=== PATIENT | female | born 1965 | race Caucasian/White ===

== ENCOUNTER → 2017-02-12 | Outpatient (CLI) | payer BC ==
--- NOTE | 2017-02-13 09:13 | MM ---
Reason for exam: screening (asymptomatic). Last mammogram was performed 1 year ago. History: Patient history of other cancer. Reductions of both breasts, 2006. Took hormonal contraceptives for 25 years beginning at age 20. Physical Findings: A clinical breast exam by your physician is recommended on an annual basis and results should be correlated with mammographic findings. MG 3D Screening Mammo W/Cad Bilateral CC and MLO view(s) were taken. Prior study comparison: January 31, 2016, bilateral MG screening mammo w CAD. January 25, 2015, bilateral MG screening mammo w CAD. The breast tissue is heterogeneously dense. This may lower the sensitivity of mammography. Finding: There are typically benign dystrophic, round, grouped/clustered and diffuse calcifications in both breasts. Asymmetric breast tissue in the right upper outer quadrant is stable. There is no discrete abnormality. ASSESSMENT: Benign, BI-RAD 2 RECOMMENDATION: Routine screening mammogram of both breasts in 1 year.
== END | disposition home or self-care (01) ==
LOC: RADMAMWWP 09:26
PROVIDERS: ATTEND Obstetrics & Gynecology
DX: Z12.31 Encounter for screening mammogram for malignant neoplasm of breast (principal)
CPT/HCPCS: 77063; G0202

== ENCOUNTER → 2017-05-04 | Outpatient (CLI) | payer BC ==
[2017-05-04 08:59] LABS: HGB 14.1 gm/dL (11.4-16.0); MCHC 32.7 g/dL (31.0-37.0); MCV 91.5 fL (80.0-100.0); Platelet Count 213 k/uL (150-450); RDW 12.2 % (11.5-15.5); WBC 5.7 k/uL (3.8-10.6)
[2017-05-04 09:57] LABS: ALT 44 U/L (9-52); AST 23 U/L (14-36); Albumin 3.7 g/dL (3.5-5.0); Alkaline Phosphatase 66 U/L (38-126); Anion Gap 8 mmol/L; Blood Urea Nitrogen 16 mg/dL (7-17); Calcium 9.4 mg/dL (8.4-10.2); Carbon Dioxide 24 mmol/L (22-30); Chloride 109 mmol/L (98-107); Cholesterol 135 mg/dL (<200); Glucose 90 mg/dL (74-99); HDL Cholesterol 67 mg/dL (40-60); LDL Cholesterol,Calculated 56 mg/dL (0-99); Potassium 4.4 mmol/L (3.5-5.1); Sodium 141 mmol/L (137-145); Total Bilirubin 0.7 mg/dL (0.2-1.3); Total Protein 6.5 g/dL (6.3-8.2); Triglycerides 62 mg/dL (<150)
== END | disposition home or self-care (01) ==
LOC: LABWHC1 08:28
PROVIDERS: ATTEND Family Medicine
DX: E06.9 Thyroiditis, unspecified (principal); R73.01 Impaired fasting glucose; E78.00 Pure hypercholesterolemia, unspecified; E55.9 Vitamin D deficiency, unspecified
CPT/HCPCS: 36415; 80053; 80061; 82306; 83735; 84443; 84481; 85027

== ENCOUNTER → 2017-10-22 | Outpatient (CLI) | payer BC ==
[2017-10-22 08:25] LABS: HCT 42.1 % (34.0-46.0); HGB 14.2 gm/dL (11.4-16.0); MCH 30.4 pg (25.0-35.0); MCHC 33.7 g/dL (31.0-37.0); MCV 90.4 fL (80.0-100.0); Mean Platelet Volume 7.1; Platelet Count 202 k/uL (150-450); RBC 4.65 m/uL (3.80-5.40); RDW 12.6 % (11.5-15.5); WBC 5.1 k/uL (3.8-10.6)
[2017-10-22 08:46] LABS: ALT 34 U/L (9-52); AST 23 U/L (14-36); Albumin 3.8 g/dL (3.5-5.0); Alkaline Phosphatase 64 U/L (38-126); Anion Gap 7 mmol/L; Blood Urea Nitrogen 12 mg/dL (7-17); Carbon Dioxide 23 mmol/L (22-30); Chloride 110 mmol/L (98-107); Cholesterol 121 mg/dL (<200); Glucose 91 mg/dL (74-99); HDL Cholesterol 68 mg/dL (40-60); LDL Cholesterol,Calculated 38 mg/dL (0-99); Potassium 4.1 mmol/L (3.5-5.1); Sodium 140 mmol/L (137-145); Total Bilirubin 0.5 mg/dL (0.2-1.3); Total Protein 6.3 g/dL (6.3-8.2); Triglycerides 76 mg/dL (<150)
== END | disposition home or self-care (01) ==
LOC: LABWHC1 08:03
PROVIDERS: ATTEND Family Medicine
DX: E03.9 Hypothyroidism, unspecified (principal)
CPT/HCPCS: 36415; 80053; 80061; 83735; 84443; 85027

== ENCOUNTER → 2017-11-13 | Outpatient (CLI) | payer BC ==
[2017-11-13 09:04] LABS: Prothrombin Time 10.2 sec (9.0-12.0)
[2017-11-13 11:27] LABS: C Reactive Protein <5.0 mg/L (<10.0)
[2017-11-14 06:55] LABS: EBV - EA (IgG) <5.0 U/mL (<9.0)
[2017-11-14 13:19] LABS: Vitamin C 11 mg/L (2-19)
== END | disposition home or self-care (01) ==
LOC: LABWHC1 08:25
PROVIDERS: ATTEND Family Medicine
DX: G47.00 Insomnia, unspecified (principal); M79.81 Nontraumatic hematoma of soft tissue
CPT/HCPCS: 36415; 82180; 82533; 84481; 85610; 86038; 86140; 86663

== ENCOUNTER → 2018-02-18 | Outpatient (CLI) | payer BC ==
--- NOTE | 2018-02-19 10:22 | MM ---
Reason for exam: screening (asymptomatic). Last mammogram was performed 1 year ago. History: Patient history of other cancer. Reductions of both breasts, 2006. Took hormonal contraceptives for 25 years beginning at age 20. Physical Findings: A clinical breast exam by your physician is recommended on an annual basis and results should be correlated with mammographic findings. MG 3D Screening Mammo W/Cad Bilateral CC, MLO, and XCCL view(s) were taken. Prior study comparison: February 12, 2017, bilateral MG 3d screening mammo w/cad. January 31, 2016, bilateral MG screening mammo w CAD. The breast tissue is heterogeneously dense. This may lower the sensitivity of mammography. There are benign appearing round calcifications bilaterally. Post surgical change bilaterally. No significant changes when compared with prior studies. ASSESSMENT: Benign, BI-RAD 2 RECOMMENDATION: Routine screening mammogram of both breasts in 1 year.
== END | disposition home or self-care (01) ==
LOC: RADMAMWWP 09:43
PROVIDERS: ATTEND Obstetrics & Gynecology
DX: Z12.31 Encounter for screening mammogram for malignant neoplasm of breast (principal)
CPT/HCPCS: 77063; 77067

== ENCOUNTER → 2018-04-29 | Outpatient (CLI) | payer BC ==
[2018-04-29 08:28] LABS: HCT 44.7 % (34.0-46.0); HGB 14.9 gm/dL (11.4-16.0); MCH 30.3 pg (25.0-35.0); MCHC 33.2 g/dL (31.0-37.0); MCV 91.2 fL (80.0-100.0); Mean Platelet Volume 7.2; Platelet Count 179 k/uL (150-450); RBC 4.91 m/uL (3.80-5.40); RDW 12.8 % (11.5-15.5)
[2018-04-29 11:40] LABS: LDL Cholesterol,Calculated 46.6 mg/dL (0.0-131.0); VLDL Calculation 14.4 mg/dL (5.00-40.00)
[2018-04-29 20:29] LABS: Hemoglobin A1C 5.3 % (4.0-6.0)
== END | disposition home or self-care (01) ==
LOC: LABWHC1 07:11
PROVIDERS: ATTEND Family Medicine
DX: E78.5 Hyperlipidemia, unspecified (principal); E03.9 Hypothyroidism, unspecified; R73.01 Impaired fasting glucose
CPT/HCPCS: 36415; 80061; 83036; 84443; 84481; 85027

== ENCOUNTER → 2018-08-05 | Outpatient (CLI) | payer BC | END | disposition home or self-care (01) | LOC: LABWHC1 07:48 | PROVIDERS: ATTEND Family Medicine | DX: E03.9 Hypothyroidism, unspecified (principal); E78.5 Hyperlipidemia, unspecified | CPT/HCPCS: 36415; 80061; 84443 ==

== ENCOUNTER → 2018-11-11 | Outpatient (CLI) | payer BC ==
[2018-11-11 10:35] LABS: African American GFR (CKD) 117.1 (60.0-200.0); Albumin 3.8 g/dL (3.80-4.90); Albumin/Globulin Ratio 1.9 (1.60-3.17); Anion Gap 3.5 mmol/L (4.00-12.00); BUN/Creat Ratio 17.14 Ratio (12.00-20.00); Calcium 8.8 mg/dL (8.7-10.3); Carbon Dioxide 25.5 mmol/L (21.6-31.8); LDL Cholesterol,Calculated 58.4 mg/dL (0.0-131.0); Potassium 4.3 mmol/L (3.5-5.5); Total Bilirubin 0.6 mg/dL (0.3-1.2); Total Protein 5.8 g/dL (6.2-8.2); VLDL Calculation 18.6 mg/dL (5.00-40.00)
[2018-11-11 10:44] LABS: Hemoglobin A1C 5.4 % (4.0-6.0)
== END | disposition home or self-care (01) ==
LOC: LABWHC1 07:03
PROVIDERS: ATTEND Family Medicine
DX: E78.5 Hyperlipidemia, unspecified (principal); E03.9 Hypothyroidism, unspecified; E55.9 Vitamin D deficiency, unspecified; R73.01 Impaired fasting glucose
CPT/HCPCS: 36415; 80053; 80061; 82306; 83036; 83735; 84443; 84481

== ENCOUNTER → 2019-02-24 | Outpatient (CLI) | payer BC ==
--- NOTE | 2019-02-25 08:05 | MM ---
Reason for exam: screening (asymptomatic). Last mammogram was performed 1 year ago. History: Patient history of other cancer. Reductions of both breasts, 2006. Took hormonal contraceptives for 25 years beginning at age 20. Physical Findings: A clinical breast exam by your physician is recommended on an annual basis and results should be correlated with mammographic findings. MG 3D Screening Mammo W/Cad Bilateral CC and MLO view(s) were taken. Prior study comparison: February 18, 2018, bilateral MG 3d screening mammo w/cad. February 12, 2017, bilateral MG 3d screening mammo w/cad. The breast tissue is heterogeneously dense. This may lower the sensitivity of mammography. Post mammoplasty changes. No significant changes when compared with prior studies. ASSESSMENT: Negative, BI-RAD 1 RECOMMENDATION: Routine screening mammogram of both breasts in 1 year.
== END ==
LOC: RADMAMWWP 07:43
PROVIDERS: ATTEND Obstetrics & Gynecology
DX: Z12.31 Encounter for screening mammogram for malignant neoplasm of breast (principal)
CPT/HCPCS: 77063; 77067

== ENCOUNTER → 2019-05-12 | Outpatient (CLI) | payer BC | END | disposition home or self-care (01) | LOC: LABWHC1 09:27 | PROVIDERS: ATTEND Family Medicine | DX: E03.9 Hypothyroidism, unspecified (principal); E46 Unspecified protein-calorie malnutrition | CPT/HCPCS: 36415; 84155; 84443; 84481 ==

== ENCOUNTER → 2019-11-17 | Outpatient (CLI) | payer BC ==
[2019-11-17 08:29] LABS: HGB 14.4 gm/dL (11.4-16.0); MCH 30.4 pg (25.0-35.0); MCHC 32.8 g/dL (31.0-37.0); MCV 92.6 fL (80.0-100.0); Mean Platelet Volume 7.7; Platelet Count 198 k/uL (150-450); RBC 4.75 m/uL (3.80-5.40); RDW 12.5 % (11.5-15.5); WBC 5.8 k/uL (3.8-10.6)
[2019-11-17 15:39] LABS: African American GFR (CKD) 116.3 (60.0-200.0); Albumin 3.9 g/dL (3.80-4.90); Albumin/Globulin Ratio 1.86 (1.60-3.17); Anion Gap 6.5 mmol/L (4.00-12.00); BUN/Creat Ratio 15.71 Ratio (12.00-20.00); Calcium 8.7 mg/dL (8.7-10.3); Carbon Dioxide 24.5 mmol/L (21.6-31.8); Chol/HDL Ratio 2.34; Globulin 2.1 g/dL (1.6-3.3); LDL Cholesterol,Calculated 50.8 mg/dL (0.0-131.0); Magnesium 1.9 mg/dL (1.5-2.4); Non-African American GFR(CKD) 100.3 (60.0-200.0); Potassium 3.8 mmol/L (3.5-5.5); Total Bilirubin 0.6 mg/dL (0.3-1.2); VLDL Calculation 24.2 mg/dL (5.00-40.00)
== END | disposition home or self-care (01) ==
LOC: LABWHC1 07:51
PROVIDERS: ATTEND Family Medicine
DX: E03.9 Hypothyroidism, unspecified (principal); E66.9 Obesity, unspecified; E88.09 Other disorders of plasma-protein metabolism, not elsewhere classified; E55.9 Vitamin D deficiency, unspecified
CPT/HCPCS: 36415; 80053; 80061; 82306; 83735; 84443; 84481; 85027

== ENCOUNTER → 2020-04-27 | Outpatient (CLI) | payer BC ==
--- NOTE | 2020-04-28 11:17 | MM ---
Reason for exam: screening (asymptomatic). Last mammogram was performed 1 year and 2 months ago. History: Patient history of other cancer. Reductions of both breasts, 2006. Took hormonal contraceptives for 25 years beginning at age 20. Physical Findings: A clinical breast exam by your physician is recommended on an annual basis and results should be correlated with mammographic findings. MG 3D Screening Mammo W/Cad Bilateral CC and MLO view(s) were taken. Prior study comparison: February 24, 2019, bilateral MG 3d screening mammo w/cad. February 18, 2018, bilateral MG 3d screening mammo w/cad. There are scattered fibroglandular densities. No significant changes when compared with prior studies. ASSESSMENT: Benign, BI-RAD 2 RECOMMENDATION: Routine screening mammogram of both breasts in 1 year.
== END | disposition home or self-care (01) ==
LOC: RADMAMWWP 08:09
PROVIDERS: ATTEND Obstetrics & Gynecology
DX: Z12.31 Encounter for screening mammogram for malignant neoplasm of breast (principal)
CPT/HCPCS: 77063; 77067

== ENCOUNTER → 2020-05-14 | Outpatient (CLI) | payer BC ==
[2020-05-14 09:43] LABS: HCT 45.5 % (34.0-46.0); HGB 15.4 gm/dL (11.4-16.0); MCH 31.4 pg (25.0-35.0); MCHC 33.8 g/dL (31.0-37.0); Mean Platelet Volume 7.1; Platelet Count 209 k/uL (150-450); RDW 12.3 % (11.5-15.5); WBC 6.8 k/uL (3.8-10.6)
[2020-05-14 18:49] LABS: African American GFR (CKD) 98.2 (60.0-200.0); Albumin 4.2 g/dL (3.80-4.90); Albumin/Globulin Ratio 2.1 (1.60-3.17); Anion Gap 6.6 mmol/L (4.00-12.00); BUN/Creat Ratio 18.75 Ratio (12.00-20.00); Carbon Dioxide 24.4 mmol/L (21.6-31.8); Chol/HDL Ratio 2.24; LDL Cholesterol,Calculated 64.2 mg/dL (0.0-131.0); Non-African American GFR(CKD) 84.8 (60.0-200.0); Potassium 4.3 mmol/L (3.5-5.5); Total Bilirubin 0.7 mg/dL (0.3-1.2); Total Protein 6.2 g/dL (6.2-8.2); VLDL Calculation 19.8 mg/dL (5.00-40.00)
== END | disposition home or self-care (01) ==
LOC: LABWHC1 08:24
PROVIDERS: ATTEND Family Medicine
DX: E55.9 Vitamin D deficiency, unspecified (principal); E66.3 Overweight; E03.9 Hypothyroidism, unspecified; E78.5 Hyperlipidemia, unspecified
CPT/HCPCS: 36415; 80053; 80061; 82550; 82607; 83735; 84443; 84481; 85027

== ENCOUNTER → 2020-11-18 | Outpatient (CLI) | payer BC ==
[2020-11-18 12:37] LABS: HCT 44.4 % (37.2-46.3); HGB 14.5 g/dL (12.0-15.0); MCH 30.4 pg (27.0-32.0); MCHC 32.7 g/dL (32.0-37.0); MCV 93.1 fL (80.0-97.0); Mean Platelet Volume 10.5 fL (9.5-12.2); Platelet Count 213 X 10*3/uL (140-440); RBC 4.77 X 10*6/uL (4.10-5.20); RDW 12.1 % (11.5-14.5); WBC 5.95 X 10*3/uL (4.50-10.00)
[2020-11-18 17:27] LABS: African American GFR (CKD) 115.5 (60.0-200.0); Albumin 4.1 g/dL (3.80-4.90); Albumin/Globulin Ratio 1.78 (1.60-3.17); Anion Gap 10.1 mmol/L (4.00-12.00); BUN/Creat Ratio 18.57 Ratio (12.00-20.00); Calcium 9.1 mg/dL (8.7-10.3); Carbon Dioxide 20.9 mmol/L (21.6-31.8); Chol/HDL Ratio 2.55; Globulin 2.3 g/dL (1.6-3.3); LDL Cholesterol,Calculated 61.6 mg/dL (0.0-131.0); Non-African American GFR(CKD) 99.6 (60.0-200.0); Potassium 4.2 mmol/L (3.5-5.5); Total Bilirubin 0.7 mg/dL (0.2-1.2); Total Protein 6.4 g/dL (6.2-8.2); VLDL Calculation 23.4 mg/dL (5.00-40.00)
== END | disposition home or self-care (01) ==
LOC: LABWHC1 07:10
PROVIDERS: ATTEND Family Medicine
DX: E78.5 Hyperlipidemia, unspecified (principal); E03.9 Hypothyroidism, unspecified; E66.3 Overweight; G47.00 Insomnia, unspecified
CPT/HCPCS: 36415; 80053; 80061; 82550; 84443; 85027

== ENCOUNTER → 2021-06-06 | Outpatient (CLI) | payer BC ==
--- NOTE | 2021-06-07 10:31 | MM ---
Reason for exam: screening (asymptomatic). Last mammogram was performed 1 year and 1 month ago. History: Patient is postmenopausal and history of other cancer. Benign excisional biopsy of the right breast, 2011. Reductions of both breasts, 2005. Took hormonal contraceptives for 25 years beginning at age 20. Physical Findings: A clinical breast exam by your physician is recommended on an annual basis and results should be correlated with mammographic findings. MG 3D Screening Mammo W/Cad Bilateral CC and MLO view(s) were taken. Prior study comparison: April 27, 2020, bilateral MG 3d screening mammo w/cad. February 24, 2019, bilateral MG 3d screening mammo w/cad. There are scattered fibroglandular densities. There is no discrete abnormality. No significant changes when compared with prior studies. ASSESSMENT: Negative, BI-RAD 1 RECOMMENDATION: Routine screening mammogram of both breasts in 1 year.
== END | disposition home or self-care (01) ==
LOC: RADMAMWWP 13:28
PROVIDERS: ATTEND Obstetrics & Gynecology
DX: Z12.31 Encounter for screening mammogram for malignant neoplasm of breast (principal); Z78.0 Asymptomatic menopausal state
CPT/HCPCS: 77063; 77067

== ENCOUNTER → 2023-06-20 | Outpatient (CLI) | payer BC ==
--- NOTE | 2023-06-21 22:11 | MM ---
Reason for Exam: Screening (asymptomatic). Last screening mammogram was performed 12 month(s) ago. Patient History: Menarche at age 16. First Full-Term at age 23. Hysterectomy at age 47. Postmenopausal. Other cancer. Hormonal Contraceptives, starting at age 20 for 25 years. 2011, Benign Excisional Biopsy on the right side. 2005, Bilateral Reduction. Risk Values: Millicent 5 year model risk: 1.1%. NCI Lifetime model risk: 7.9%. Prior Study Comparison: 04/27/2020 Bilateral Screening Mammogram, [facility]. 06/06/2021 Bilateral Screening Mammogram, [facility]. 06/19/2022 Bilateral MG 3D screening mammo w/cad, [facility]. Tissue Density: There are scattered fibroglandular densities. Findings: Analyzed By CAD. Fat necrosis calcifications on the left. Additional unchanged areas of asymmetric density on the left. There is no suspicious group of microcalcifications or new suspicious mass in either breast. Overall Assessment: Benign, BI-RAD 2 Management: Screening Mammogram of both breasts in 1 year. . Patient should continue monthly self-breast exams. A clinical breast exam by your physician is recommended on an annual basis. This exam should not preclude additional follow-up of suspicious palpable abnormalities. Note on Millicent scores and lifetime risk: 1. A Millicent score greater than 3% is considered moderate risk. If this is the case, consider specialist referral to assess eligibility for a risk reducing agent. 2. If overall lifetime risk for the development of breast cancer is 20% or higher, the patient may qualify for future screening with alternating mammogram and breast MRI. Electronically signed and approved by: Chet Duran M.D. Radiologist
== END | disposition home or self-care (01) ==
LOC: RADMAMWWP 08:02
PROVIDERS: ATTEND Obstetrics & Gynecology
DX: Z12.31 Encounter for screening mammogram for malignant neoplasm of breast (principal); Z78.0 Asymptomatic menopausal state
CPT/HCPCS: 77063; 77067

== ENCOUNTER → 2024-08-12 | Outpatient (CLI) | payer BC ==
--- NOTE | 2024-08-12 09:18 | MM ---
Reason for Exam: Screening (asymptomatic). Last mammogram was performed 1 year(s) and 2 month(s) ago. Patient History: Menarche at age 16. First Full-Term at age 23. Hysterectomy at age 47. Postmenopausal. Other cancer. Hormonal Contraceptives, starting at age 20 for 25 years. 2011, Benign Excisional Biopsy on the right side. 2005, Bilateral Reduction. Risk Values: Millicent 5 year model risk: 1.2%. NCI Lifetime model risk: 7.8%. Prior Study Comparison: 02/18/2018 Bilateral Screening Mammogram, [facility]. 02/24/2019 Bilateral Screening Mammogram, [facility]. 04/27/2020 Bilateral Screening Mammogram, [facility]. 06/06/2021 Bilateral Screening Mammogram, [facility]. 06/19/2022 Bilateral MG 3D screening mammo w/cad, [facility]. 06/20/2023 Bilateral MG 3D screening mammo w/cad, [facility]. Tissue Density: There are scattered areas of fibroglandular density. Findings: Analyzed By CAD. A few benign oil cyst calcifications redemonstrated on both sides. There is no suspicious group of microcalcifications or new suspicious mass in either breast. Overall Assessment: Benign, BI-RAD 2 Management: Screening Mammogram of both breasts in 1 year. Patient should continue monthly self-breast exams. A clinical breast exam by your physician is recommended on an annual basis. This exam should not preclude additional follow-up of suspicious palpable abnormalities. Note on Millicent scores and lifetime risk: 1. A Millicent score greater than 3% is considered moderate risk. If this is the case, consider specialist referral to assess eligibility for a risk reducing agent. 2. If overall lifetime risk for the development of breast cancer is 20% or higher, the patient may qualify for future screening with alternating mammogram and breast MRI. [facility], , 08/12/2024 9:15 AM. Electronically signed and approved by: Chet Duran M.D. Radiologist
--- NOTE | 2024-08-12 13:41 | BD ---
EXAMINATION TYPE: Axial Bone Density DATE OF EXAM: 08/12/2024 CLINICAL HISTORY: 58 years old Female. ICD-10 CODE: N95.0 POSTMENOPAUSE, M85.89 OSTEOPENIA , Additio nal History: Height: 61 Weight: 166 FRAX RISK QUESTIONS: Family History (Parent hip fracture): no History of Fracture in Adulthood: no Secondary Osteoporosis: no RISK FACTORS HISTORY OF: Surgery to Spine/Hip(right/left)/Wrist (right/left): no MEDICATIONS: Thyroid Medications: yes Which medication: Levothyroxine How Lon+ years Osteoporosis Medications: no EXAM MEASUREMENTS: Bone mineral densitometry was performed using the [employer] System. Bone mineral density as measured about the Lumbar spine is: ----- L1-L4(G/cm2): 1.168 T Score Values are as follows: ----- L1: 0.2 ----- L2: 0.6 ----- L3: -0.1 ----- L4: -1.1 ----- L1-L4: -0.1 Z Score Values are as follows: ----- L1: 0.8 ----- L2: 1.1 ----- L3: 0.5 ----- L4: -0.5 ----- L1-L4: 0.5 Bone mineral density has: Increased 3.0% since study of: 06/19/2022 Bone mineral density about the R hip (g/cm2): 0.821 Bone mineral density about the L hip (g/cm2): 0.859 T Score values are as follows: -----R Neck: -1.8 -----L Neck: -1.5 -----R Total: -1.5 -----L Total: -1.2 Z Score values are as follows: -----R Neck: -0.9 -----L Neck: -0.6 -----R Total: -1.0 -----L Total: -0.7 Bone mineral density has: Increased 0.6% since study of: 06/19/2022 FRAX%s: The graph provided illustrates a 7.5% chance for a major osteoporotic fx and a 0.7% chance fo r the hips probability for fx in 10 years time. IMPRESSION: Osteopenia (T Score between -2.5 and -1). There is slightly increased risk of fracture and the patient may be considered for treatment. Re-Screen 2-5 years. NOTE: T-SCORE=SD OF THE YOUNG ADULT MEAN. [facility], , 08/12/2024 1:39 PM
== END | disposition home or self-care (01) ==
LOC: RADMAMWWP 07:00
PROVIDERS: ATTEND Family Medicine
DX: Z12.31 Encounter for screening mammogram for malignant neoplasm of breast (principal); R92.323 Mammographic fibroglandular density, bilateral breasts; M85.89 Other specified disorders of bone density and structure, multiple sites; Z78.0 Asymptomatic menopausal state; Z92.0 Personal history of contraception
CPT/HCPCS: 77063; 77067; 77080